=== PATIENT | male | born 2005 | race Caucasian/White ===

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

== ENCOUNTER 2024-10-13 13:49 | Emergency (ER) | payer MEDICAID, SELFPAY ==
[2024-10-13] VITALS (8 sets, daily range): BP systolic 89–110; BP diastolic 53–67; PULSE 84–103; RESP 19–25; TEMP 36.6–37.7; O2SAT 93–100; BMI 25.4
--- NOTE | 2024-10-13 14:08 | EKG12_ITS ---
Test Reason : Blood Pressure : */* mmHG Vent. Rate : 102 BPM Atrial Rate : 102 BPM P-R Int : 128 ms QRS Dur : 76 ms QT Int : 304 ms P-R-T Axes : 13 -10 23 degrees QTcB Int : 396 ms Sinus tachycardia Minimal voltage criteria for LVH, may be normal variant ( R in aVL ) Nonspecific T wave abnormality Abnormal ECG Confirmed by MOY CROW, CHALO ([id number]), photograph editor KRISSY ALLEN ([id number]) on 10/16/2024 7:18:57 AM Referred By: John Rosa Confirmed By: CHALO WINTER MD
--- NOTE | 2024-10-13 14:09 | EX.ED.DYSGE1 ---
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 Patient presents via EMS with reported shortness of breath. Family members were sick as well. Reported increased difficulty breathing/shortness of breath. Grandmother who is also his guardian states that she has been sick over the last few days with decreased appetite. She attempted to do his tube feedings, but he did not tolerated. Yesterday he had fever as well today and began coughing. She states that he coughed up pink phlegm. She was unsure as to the cause of this, thinking that maybe he was suction too hard by his home health nurse. He last received an antipyretic about an hour and a half ago. They state that he was also having difficulty breathing this morning but they did not administer albuterol this morning because he was already tachycardic. No recent admissions to the hospital. [facility] Medical History History of urinary reflux History of urinary reflux Blind right eye Dysphagia Asthma Cleft soft palate VSD (ventricular septal defect) G tube feedings Seizure disorder Trisomy 18 syndrome Home Medications ?Medication ?Instructions ?Recorded ?Last Taken ?Type albuterol sulfate 2.5 mg/3 mL 2.5 mg inhalation Q4H PRN PRN 08/23/16 02/21/18 History (0.083 %) solution for nebulization Shortness Of Breath levetiracetam 100 mg/mL oral 900 mg G-tube TID 08/23/16 02/21/18 History solution melatonin 1 mg tablet 10 mg G-tube QHS 08/23/16 1 Day Ago History ~02/20/18 metoprolol tartrate 25 mg tablet 25 mg G-tube BID 08/23/16 02/21/18 History L.acidoph,paracasei,B.animalis 10 1 ea GT BID 12/21/19 Unknown History billion cell capsule immune glob,gamma (IgG) 10 1 dose QWEEK 12/21/19 Unknown History %-gly-IgA over 50 mcg/mL injection solution polymyxin B sulfate 10,000 10 ml OP BID PRN PRN DRYNESS 12/21/19 Unknown History unit-trimethoprim 1 mg/mL eye drops (Polytrim) cetirizine 10 mg tablet (Zyrtec) 10 mg G-tube DAILY 11/29/20 Unknown History calcium carbonate 500 mg/5 mL (as 625 mg feeding tube DAILY 02/06/21 Unknown History calcium carb 1,250 mg/5 mL) oral suspension cholecalciferol (vitamin D3) 10 10 mcg PO DAILY 02/06/21 Unknown History mcg/mL (400 unit/mL) oral drops diazepam 10 mg/spray (0.1 mL) 10 mg intranasal PRN PRN Seizures 02/10/22 Unknown History nasal spray (Valtoco) furosemide 10 mg/mL injection 10 mg IM DAILY 08/24/22 Unknown History solution amoxicillin 400 mg/5 mL oral 875 mg (10.9375 mL) PO BID 10 days 03/08/23 Unknown Rx suspension #218.75 mL Allergy/AdvReac Type Severity Reaction Status Date / Time immune globulin,gamma (IgG) Allergy Other Verified 03/08/23 19:04 human (From Treater) Surgical History History of tonsillectomy and adenoidectomy History of Zo fundoplication Social History Smoking Status: Never smoker alcohol intake: never substance use type: does not use ROS ROS ED ROS Narrative Unable to obtain from patient secondary to nonverbal. Per grandmother/guardian, positive fever, not tolerating tube feeds. Developed cough with pink sputum production today. Increased difficulty breathing today as well. EXAM Physical Exam Narrative Exam Narrative: Afebrile, but temperature slightly elevated 99.9 ?F. Vital signs noted. Cardiovascular examination reveals a regular rate and rhythm with holosystolic murmur. Positive rhonchorous lungs bilaterally. Abdomen soft with noted PEG tube. Positive bowel sounds. No guarding or rebound. Const Vital Signs: 10/13/24 13:52 10/13/24 13:57 10/13/24 14:30 Temperature 99.9 F H 99.9 F H 99.9 F H Temperature Source Axillary Axillary Axillary Pulse Rate 84 88 99 Respiratory Rate 19 H 23 H 25 H Respiratory Pattern Blood Pressure 89/67 L 89/67 L 110/65 Blood Pressure Mean 74 74 78 Pulse Ox 100 100 98 Oxygen Delivery Method Non-Rebreather Non-Rebreather Trach Collar Oxygen Flow Rate (L/min) 6 6 4 10/13/24 14:31 10/13/24 14:39 10/13/24 15:17 Temperature Temperature Source Pulse Rate 99 Respiratory Rate 22 H Respiratory Pattern Normal Tachypnea Blood Pressure Blood Pressure Mean Pulse Ox 100 Oxygen Delivery Method Trach Collar Oxygen Flow Rate (L/min) 4 10/13/24 16:00 10/13/24 17:00 10/13/24 18:00 Temperature 98.1 F 98.1 F 98 F Temperature Source Axillary Axillary Axillary Pulse Rate 97 93 103 H Respiratory Rate 21 H 20 H 20 H Respiratory Pattern Blood Pressure 103/62 94/53 L 108/62 Blood Pressure Mean 74 66 77 Pulse Ox 95 97 95 Oxygen Delivery Method Nasal Cannula Nasal Cannula Room Air Oxygen Flow Rate (L/min) 4 4 10/13/24 18:00 Temperature 98.1 F Temperature Source Axillary Pulse Rate 96 Respiratory Rate 19 H Respiratory Pattern Blood Pressure 107/63 Blood Pressure Mean 78 Pulse Ox 93 Oxygen Delivery Method Room Air Oxygen Flow Rate (L/min) MDM MDM MDM Narrative Medical decision making narrative: Differential diagnosis includes but not limited to pneumonia versus pneumothorax versus upper respiratory infection/viral syndrome including COVID, influenza, and RSV. Additionally, CHF is in the differential diagnosis as well. I have low suspicion for pneumothorax based on the patient's physical examination. He is mildly hypotensive initially at 89 systolic, but increased to 99. I reviewed his prior problem list he has seizure disorder with previous aspiration, and a ventricular septal defect. He also has renal agenesis and Mo syndrome. EKG was obtained and interpreted by myself independently as sinus tachycardia 102 bpm without ectopy or acute ST changes. No STEMI. I reviewed his laboratory work after it was obtained, and he has normal white count of 8.6 with hemoglobin 13.9, hematocrit 41.5, platelet count slightly low at 110 2 feels probably chronic for him. BMP grossly unremarkable except for glucose of 109. Lactic acid is elevated at 2.9, but when compared to previous laboratories, he has chronic elevation of his lactic acid. Chest x-ray in 1 view interpreted by myself independently shows no evidence of a pneumonia or pneumothorax. There is air in the bowel causing mild distention. I reviewed the radiology report and it comments on possible free air under the diaphragm. I did read the radiology report to the transfer physician who wanted a decubitus film as well but still wants to transfer via [facility] mobile intensive care. Patient has been bolused IV fluids for the lactic acidosis. Additionally, his respiratory swab was positive for influenza A. Initially I did order Tamiflu, but given the possibility of free air under the right hemidiaphragm, this was held until decubitus film was obtained. Additionally, the transfer physician did request that he be given his antiseizure medications as well. He was administered Keppra 1000 mg intravenously as he usually takes 900 through his G-tube according to his medication list. On my independent interpretation of his decubitus abdominal x-ray, there is no evidence of free air. I did review the radiology report which confirms my independent interpretation of no noted free air. I had discussed the patient with his grandmother who states that she is unable to take him home and wants him transferred. She herself is sick and unable to care for him. I do feel that this is possible given his chronic conditions and his being influenza positive. He is currently not tachycardic and his blood pressure is stable. Disposition is transferred in stable condition. History & Record Review Discussion w/independent historian: Family Additional record(s) reviewed:: Prior labs Lab Data Attestation: I reviewed the patient's lab results. Labs: Laboratory Results - last 24 hr 10/13/24 10/13/24 10/13/24 15:05 15:05 15:57 WBC Cancelled 8.6 Corrected WBC Cancelled RBC Cancelled 4.52 L Hgb Cancelled 13.9 Hct Cancelled 41.5 MCV Cancelled 91.8 MCH Cancelled 30.8 MCHC Cancelled 33.5 RDW Std Deviation Cancelled 43.8 RDW Coeff of Radha Cancelled 13.2 Plt Count Cancelled 110 L MPV Cancelled 11.6 Immature Gran % (Auto) Cancelled 0.500 Neut % (Auto) Cancelled 79.9 H Lymph % (Auto) Cancelled 8.0 L [place] % (Auto) Cancelled 11.1 H Eos % (Auto) Cancelled 0.3 Baso % (Auto) Cancelled 0.2 Absolute Neuts (auto) Cancelled 6.9 Absolute Lymphs (auto) Cancelled 0.69 L Total Counted Cancelled Neutrophils % (Manual) Cancelled Band Neutrophils % Cancelled Lymphocytes % (Manual) Cancelled Monocytes % (Manual) Cancelled Eosinophils % (Manual) Cancelled Basophils % (Manual) Cancelled Metamyelocytes % Cancelled Myelocytes % Cancelled Promyelocytes % Cancelled Blast Cells % Cancelled Plasma Cell % (Manual) Cancelled Other Cells % Cancelled Nucleated RBC % Cancelled 0 Nucleated RBCs/100 WBC Cancelled Differential Comment Cancelled Diff Path Review Cancelled Hypersegmented Neuts Cancelled Atypical Lymphocytes Cancelled Reactive Lymphocytes Cancelled Smudge Cells Cancelled Toxic Granulation Cancelled Toxic Vacuolation Cancelled Dohle Bodies Cancelled Candy Rods Cancelled Platelet Estimate Cancelled Plt Morphology Comment Cancelled RBC Morphology Cancelled Cancelled Polychromasia Cancelled Hypochromasia Cancelled Basophilic Stippling Cancelled Anisocytosis Cancelled Microcytosis Cancelled Macrocytosis Cancelled Spherocytes Cancelled Sickle Cells Cancelled Target Cells Cancelled Tear Drop Cells Cancelled Ovalocytes Cancelled Stomatocytes Cancelled Simons-[place]ijer[place] Bodies Cancelled Brayden Cells Cancelled Bite Cells Cancelled Crenated Cell Cancelled Acanthocytes (Spur) Cancelled Rouleaux Cancelled Schistocytes Cancelled Sodium 138 Potassium 4.5 Chloride 104 Carbon Dioxide 27.0 Anion Gap 6 BUN 18 Creatinine 1.04 Estim Creat Clear Calc 68.40 Est GFR (MDRD) Af Amer 117 Est GFR (MDRD) Non-Af 97 BUN/Creatinine Ratio 17.3 Glucose 109 H Lactic Acid 2.9 H* Calcium 9.5 Radiography Diagnostic Testing: Clinical Impression(s) from Imaging Studies Chest X-Ray 10/13/24 14:45 IMPRESSION: Free air beneath the right hemidiaphragm. Diminished lung volumes. Elevation of the right hemidiaphragm. Severe scoliosis of the vertebral column. Tracheostomy tube in good position. Reading Location: [facility] Abdomen X-Ray 10/13/24 17:35 IMPRESSION: No definite signs of free air on the upright projection of the abdomen. 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, Discussing w/Consultants and Arranging Admission or Transfer Discharge Plan Triage Chief Complaint: General Illness ED Provider: John Rosa Dx/Rx/DC Orders Clinical Impression: Mo' syndrome, Influenza A, Lactic acidosis Prescriptions: No Action levetiracetam 500 MG/5 ML solution 900 mg G-tube TID melatonin 1 MG tablet 10 mg G-tube QHS metoprolol tartrate 25 MG tablet 25 mg G-tube BID albuterol sulfate 2.5 MG/3 ML solution for nebulization 2.5 mg inhalation Q4H PRN PRN (Reason: Shortness Of Breath) polymyxin B sulf-trimethoprim [Polytrim] 10 ML drops 10 ml OP BID PRN PRN (Reason: DRYNESS) L.acidoph,paracasei,B.animalis 1 EACH capsule 1 ea GT BID immun glob G(IgG)-gly-IgA ov50 10% solution 1 dose QWEEK cetirizine [Zyrtec] 10 MG tablet 10 mg GT DAILY calcium carbonate 500 mg/5 mL (1,250 mg/5 mL) Suspension 625 mg feeding tube DAILY cholecalciferol (vitamin D3) 10 mcg/mL (400 unit/mL) Drops 10 mcg PO DAILY Valtoco 10 mg/spray (0.1 mL) [place],Non-Aerosol 10 mg INTRANASAL PRN PRN (Reason: Seizures) furosemide [Lasix] 10 mg/mL Solution 10 mg IM DAILY amoxicillin 400 mg/5 mL suspension for reconstitution 875 mg PO BID 10 Days Qty: 218.75 0RF Primary Care Provider: Damian Corley Referrals: Damian Corley MD [Primary Care Provider] - Print Language: Tuvaluan Disposition Disposition: Acute Care Hospital Discharge Location: [facility] Discharge Date/Time: 10/13/24 19:14
[2024-10-13] MEDS: Albuterol 2.5 MG/3 ML VIAL.NEB. INHALATION (14:31)
--- NOTE | 2024-10-13 14:45 | RAD_ITS ---
PROCEDURE: CHEST 1 VIEW (PORTABLE) REASON FOR EXAM: Increased shortness of breath. Patient has a tracheostomy. Family has influenza. TECHNIQUE: Single frontal image including the chest and upper abdomen. COMPARISON: 03/08/2023 AP upright portable chest. FINDINGS: Diminished lung volumes. Elevation of the right hemidiaphragm. Free air beneath the right hemidiaphragm. No pleural effusions, thickening, or pneumothorax. Heart and mediastinum are stable. Great vessels unremarkable. No hilar masses. Severe scoliosis of the vertebral column. Soft tissues unremarkable. Cardiac monitoring leads overlie the chest wall. Tip of the tracheostomy tube in good position above the ida. RAD/Chest 1 View (Portable) IMPRESSION: Free air beneath the right hemidiaphragm. Diminished lung volumes. Elevation of the right hemidiaphragm. Severe scoliosis of the vertebral column. Tracheostomy tube in good position. Reading Location: [facility]
[2024-10-13 15:53] LABS: Anion Gap 6 (5-15); BUN 18 mg/dL (7-18); BUN/Creat Ratio 17.3 RATIO (10-20); Calcium,Total 9.5 mg/dL (8.5-10.1); Chloride 104 mmol/L (98-107); Creatinine, Serum 1.04 mg/dL (0.70-1.30); EST Glomerular Filtration Rate 97 mL/min (>60); Est Glom Filt Rate - Afr Amer 117 mL/min (>60); Glucose 109 mg/dL (74-106); Potassium 4.5 mmol/L (3.5-5.1); Sodium Level 138 mmol/L (136-145)
[2024-10-13 15:55] LABS: Lactic Acid 2.9 mmol/L (0.4-1.9)
[2024-10-13 16:24] LABS: Absolute Lymphocyte Count 0.69 X10^3/uL (0.83-4.51); Absolute Neutrophil Count 6.9 X10^3/uL (2.0-7.7); Basophil# 0.02 X10^3/uL; Basophil% 0.2 % (0-1); Eosinophil# 0.03 X10^3/uL; Eosinophils% 0.3 % (0-5); Hematocrit 41.5 % (40-54); Hemoglobin 13.9 g/dL (13.0-16.5); Lymphocyte # 0.69 X10^3/ul (0.83-4.51); Mean Corp Hgb Conc 33.5 g/dL (32-36); Mean Corpuscular Hgb 30.8 pg (27.0-32.0); Mean Corpuscular Volume 91.8 fL (80-94); Mean Platelet Vol. 11.6 fl (6.2-12.0); Monocyte# 0.96 X10^3/uL; Monocyte% 11.1 % (0-10); NRBC Flagged by Analyzer 0 % (0-5); Neutrophil % 79.9 % (47-70); Platelet Count 110 K/mm3 (150-450); RBC Distribution Width CV 13.2 % (11.6-14.6); RBC Distribution Width SD 43.8 fl (35.1-43.9); Red Blood Count 4.52 M/mm3 (4.6-6.2); White Blood Count 8.6 K/mm3 (4.4-11.0)
[2024-10-13] MEDS: 0.9% Normal Saline (500mL Bag) 500 ML 999 ML IV (16:30)
--- NOTE | 2024-10-13 17:20 | ED.RN ---
CALLED [facility] @ 1907 FOR A TRANSFER WAITING FOR DR CUEVAS BACK
--- NOTE | 2024-10-13 17:35 | RAD_ITS ---
PROCEDURE: AP SUPINE AND UPRIGHT ABDOMEN PORTABLE REASON FOR EXAM: EVALUATE FOR FREE AIR. TECHNIQUE: TWO-VIEW ABDOMEN. COMPARISON: AP UPRIGHT PORTABLE CHEST DATED 10/13/2024. FINDINGS: Bowel-gas pattern unremarkable. No signs for obstruction. The area of suspected free air beneath the right hemidiaphragm on the earlier study is not identified on the current examination. Large fecal bolus in the rectum. Subsegmental atelectasis in the right lower lobe. Bones and soft tissues are unchanged. RAD/Abd Decub and/or Erect(Portabl IMPRESSION: No definite signs of free air on the upright projection of the abdomen. Reading Location: [facility]
--- NOTE | 2024-10-13 17:40 | ED.RN ---
ACCEPTED AT [facility] @ [phone]
[2024-10-13 19:13] LABS: Reflex Lactate? Y
== END 2024-10-13 19:14 | disposition short-term general hospital (02) ==
PROVIDERS: Emergency Provider Emergency Medicine; PCP Pediatrics; Referring Provider Emergency Medicine; Visit Provider Emergency Medicine
DX: J10.1 Influenza due to other identified influenza virus with other respiratory manifestations (principal); Z93.0 Tracheostomy status; E87.20 Acidosis, unspecified; Q91.3 Trisomy 18, unspecified
CPT/HCPCS: 71045; 74019; 80048; 83605; 85025; 87040; 87631; 93005; 94640; 96360; 99285; A4216

== ENCOUNTER 2025-03-29 10:30 | Outpatient (RCR) | payer MEDICAID, SELFPAY ==
--- NOTE | 2025-03-02 12:56 | HP.OTEVAL ---
Patient's Visit Information Visit Information Visit Information: ZHAO JORGE is a 19 year old M, referred to Occupational Therapy by CHILO ROLLE, with a diagnosis of Trisomy 18, extended hospital stay due to flu dx. Date of Evaluation: 03/02/25 Occupational Therapist: Sendy Bustos Subjective Subjective: This 19 year old man was seen for OT eval today due to concerns with decreased endurance, strength, balance, following extended hospital stay. In October 13, 2024, Zhao was admitted to [facility] with the flu. He spent extended time in the ICU (~60 days) with 3-5 days on ECMO, he suffered renal failure and spent time on continuous dialysis. Total, he spent 111 days at [facility] and was dc'd home 01/31/25. He received therapy at [facility]. He has not been ambulating since coming home from the hospital. He can stand-pivot to EOB but otherwise crawls or uses wc. Prior to hospitalization, he would ambulate short distances. Grandma and nurse present during eval and provided information as Zhao is nonverbal. They would like Zhao to regain his strength and participate in simple daily tasks such as folding towels, putting clothes on hangers, etc. They want him to be able to do as much as he can in his daily life. They are interested in adaptive strategies/tools to inc indep. Zhao loves hitting balloon back and forth and throwing balls. He will push buttons to control remote control robot. Zhao lives at home with grandjc who is his guardian. Aunt and two cousins also currently staying with them. In-home nurse M-F first shift (40hrs/week). Zhao prefers to sit in bed and play his tablet all day. He enjoys [employer] and [employer]. He is currently refusing to walk. He will crawl out of bed and into the living room when motivated to do so. He is indep with use of his table. Zhao has a communication device but does not use it effectively. He has limited interest. Has a few verbal phrases he will use such as "no" "knock knock" "peek a wang" , "sami." Not a lot of functional language. Zhao has a trach and is NPO. He is fed through g-tube. DX Trisomy 18 blind R eye dysphagia g-tube feeds seizure disorder VSD (ventricular septal defect) Zo funduplication ADLs Comments: Incontinent toileting - no sphincter control. Comments: NPO. incontinent Dep oral hygiene with suction UB dressing: he can get his arms through once it's over his head LB: dep Bathing: tub/shower. Nurse lifts him in and out of bathtub 2 days/week. Sponges daily. Zhao enjoys bathing and can sit up in the tub. Dep bathing. Objective Objective/Observation: Zhao followed simple commands with demonstration for ROM testing. He reached for items demonstrating functional ROM. Per grandma and nurse, he understands more than he lets on but is often resistant to following commands for adult directed tasks. Prefers to do things on his own terms. ROM ROM Comments: BUE WFL except R wrist flexed to ~ 90 deg. inc tone. baseline. Can make full fist with L hand but grasp is weak. Can throw a ball. Per nurse, he will catch a beach ball with two hands but overall bilateral hand use is limited. Would not use two hands to pull apart pop tube. Used R hand to pull apart when therapist held other side. Strength Strength Comments: Lifted BUE with 1/2" wrist weight. Unable to lift arms with 1" weight. Lifted 2# and 3# dumbbell off table with inc effort. Per grandma, prior to illness, Zhao enjoyed rolling prone and supine over beach ball and had the core strength to pull himself back up from supine position. Transfers Transfers: mod A STS with assist from nurse during eval. Zhao was resistant to standing. He did self propel wc through hallway using feet. Quick DASH-Disab of Arm,Shoulder& Hand Quick DASH Score: [phone] Goals Goal:: Zhao will demo increased UB strength by lifting BUE x 10 reps each with 3# wrist weight during functional/leisure activity to increase indep with daily tasks and transfers. Zhao will demo inc bilateral hand use to complete functional two-handed tasks such as folding towels, assisting with hanging up/putting away clothes, etc to increase indep with ADLs. CG will demo understanding of home PRE program to inc strength for transfers. Rehabilitation General Assessment: Zhao is demonstrating decreased strength, balance, endurance, fine motor skills following an extended hospital stay at [facility]. Skilled OT services are recommended 1-2x/week to address needs and provide training/adaptive strategies to maximize indep. Rehabilitation Potential: Questionable Anticipated Interventions Anticipated Interventions: A/AAROM/PROM, Strengthening, Joint Protection/Energy Conservation, Dynamic Sitting Balance, Fine Motor Coord/Quan, Neuro Reeducation, Sensory Stimulation, ADL Training, Education re assistive Equipment, Caregiver Training and Home Program Visit Plan Frequency: 2x /Week Duration: 6 Weeks TEXT: Thank you for the opportunity to evaluate your patient. For Medicare and Medicare HMO plans, please review the plan of care and approve it. It will need to be FAXED BACK to us at [phone] for Medicare purposes. Please let me know if there are questions or concerns regarding this plan of care. Physician Signature: Date:
--- NOTE | 2025-03-13 22:22 | HP.PTEVAL_ITS ---
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 Date of Evaluation: 03/02/25 Physical Therapist: Lisa Calloway PT, Cert MDT Visit Plan Frequency: 2x /Week Duration: 4-6 Weeks Plan: PT 2X'S A WK X 4-6 WKS: 1. MANUAL THERAPY FOR JIM LE CALF STRETCHING AND CAREGIVER INSTRUCTION FOR HOME. 2. JIM LE/CORE STRENGTHENING EX'S THAT ARE FUN FOR PATIENT TO IMPROVE GAIT, BALANCE AND TRANSFER ABILITIES AND THEN INSTRUCT CAREGIVERS FOR HOME (START WITH FLOOR TO MAT TRANSFERS AND STANDING BALANCE WITH FUN DISTRACTIONS PATIENT ABLE TO DEMO FLOOR TO WC TRANSFER TODAY WITH MIN ASSIST TODAY). 3. PROGRESS TO WALKING ACTIVITIES IF ABLE WITH DECREASING SUPPORTS SAFETY ALLOWS. Subjective Subjective: This 19 year old man was seen for PT eval today due to concerns with decreased endurance, strength, and balance, following extended hospital stay. In October 13, 2024, Zhao was admitted to [facility] with the flu. He spent extended time in the ICU (~60 days) with 3-5 days on ECMO, he suffered renal failure and spent time on continuous dialysis. Total, he spent 111 days at [facility] and was dc'd home 01/31/25. He received therapy at [facility]. He has not been ambulating since coming home from the hospital. He can stand- pivot to EOB but otherwise crawls or uses wc. He transfers in and out of the bed Indep'ly but they have not seen him transfer in/out of the wc Indep'ly. Prior to hospitalization, he would ambulate short distances. Per mavis, prior to illness, Zhao enjoyed rolling prone and supine over beach ball and had the core strength to pull himself back up from supine position. Mavis Bethea and nurse MARCELLA Butterfield present during eval and provided information as Zhao is nonverbal. They would like Zhao to regain his strength and participate in simple daily tasks such as walking and transfers. They want him to be able to do as much as he can in his daily life. Zhao loves hitting balloons back and forth and throwing balls. He knows his numbers, ABC's and does puzzles. Zhao lives at home with mavis who is his guardian. An Aunt and two cousins are also currently staying with them. Assistance of In-home nurse Nelson first shift (40hrs/week) and grandma mainly does the rest of caregiving. Zhao prefers to sit in bed and play his tablet all day. He also enjoys YouTube, music and watching TV. He is currently refusing to walk. Mavis is concerned he has developed some foot drop because when he stands for transfers he is on his toes. He will crawl out of bed and into the living room when motivated to do so. Nurse Greer states he did take about 5 steps on Friday to the tub with the aides but he was on his tip toes. Bathing: tub/shower. Nurse lifts him in and out of bathtub 2 days/week. Sponges daily. Zhao enjoys bathing and can sit up in the tub. Dep bathing. Pain - Nurse and Grandma indicate Zhao has a high pain tolerance and has not been indicating he is having pain. Zhao's main form of communication is pointing. Per grandma and nurse, he understands more than he lets on but is often resistant to following commands for adult directed tasks. Prefers to do things on his own terms. Zhao has a trach and is NPO. He is fed through g-tube. PMH: Trisomy 18 blind R eye dysphagia g-tube feeds seizure disorder VSD (ventricular septal defect) Zo fundoplication Objective Objective: This patient presents to PT today with his Grandma and Nurse. He is wheeled back to the PT treatment room by his Nurse with his feet partially d ragging. When cued he does not pick his feet up and CG's are aware. Patient is able to propel the wc for about 5 to 10 feet with his feet but not long distances. Transfer sit to stand and stand to sit with Mod assist from nurse and resists not wanting to stand. Floor Transfer: Grandma assisted patient to floor from and Zhao again resisted not wanting to get out of wc. Once on the floor it took him awhile to figure out how to shift his weight to get onto his knees and use his UE's on the wc and pull on the Nurses hand to help himself back into the wc but he pulled himself to stand and for just a quick second stood foot flat Jim with min to mod assist from the nurse and did a stand pivot transfer into the wc demonstrating functional ROM in his LE's to do so. NWB calves are very tight at approx. minus 10 deg and appear to be spastic. Fair Minus sitting balance at trunk on the Floor. LE AROM appear WFL with Zhao following simple commands to kick out LE's when asked. He does not stand without support today. knee PROM and hip PROM WFL, does not listen to instruction for strength testing. seems to feel light touch in feet due to pulling back when I squeeze them gently B. Follows simple commands intermittently today. Balance/Special Test Scores Lower Extremity Functional Score: 12 Goals Goal 1:: Zhao will demo increased LE strength by lifting BLE's x 10 reps each with 3# ankle weights during functional/leisure activity to increase indep with daily tasks and transfers. Goal Time Frame: 6-8 Weeks Goal 2:: Zhao will demo increased bilateral LE use to complete functional transfers to increase indep with ADLs. Goal Time Frame: 6-8 Weeks Goal 3:: Zhao will demo gait with AD with min assist +1 x 20 feet to work toward indep. Goal Time Frame: 6-8 Weeks Goal 4:: CG will demo understanding of home PRE program to increase LE strength and ROM for gait and transfers. Goal Time Frame: 6-8 Weeks Rehabilitation Potential Physical Therapy Diagnosis: Zhao is demonstrating decreased strength, balance, endurance, and gait ability following an extended hospital stay at [facility]. Skilled PT services are recommended 1-2x/week to address needs and provide ROM, gait, balance and strength training to maximize indep. Rehabilitation Potential: Questionable Anticipated Interventions Patient/Client Instruction: Educate patient on: Condition For the Purpose of:: To facilitate caregiver knowledge Therapeutic Exercise to Include: Strength training, Endurance training, Balance training, Flexibilty training, Gait and locomotor training, Neuromotor development, Passive ROM and Active ROM For the Purpose of:: To improve muscle performance and motor function, To improve ability to perform ADL's, To improve performance and independence with ADL's, To improve ability of physical actions for home/community/work/leisure, To improve gait and locomotor functions, To decrease soft tissue restriction, To increase flexibility/ROM, To improve balance and To improve tolerance to ADL's Text: Thank you for the opportunity to evaluate your patient. For Medicare and Medicare HMO plans, please review the plan of care and approve it. It will need to be FAXED BACK to us at [phone] for Medicare purposes. For Medicare only, by signing this I certify the plan of care. Please let me know if there are questions or concerns regarding this plan of care. Physician Signature: Date:__
--- NOTE | 2025-05-31 15:59 | HP.OT.NRP ---
Patient Information Patient Information: ZHAO JORGE was seen in my office for initial evaluation on 03/02/25. The following Plan of Care was established for this patient: POC Established Initial Frequency: 2x /Week Initial Duration: 6 Weeks Plan: cont POC Anticipated Interventions Anticipated Interventions: A/AAROM/PROM, Strengthening, Joint Protection/Energy Conservation, Dynamic Sitting Balance, Fine Motor Coord/Quan, Neuro Reeducation, Sensory Stimulation, ADL Training, Education re assistive Equipment, Caregiver Training and Home Program Last Seen Last Seen: This patient was last seen in our office 03/29/25. Pertinent comments regarding their Occupational therapy will appear below: no further apts have been scheduled and due to time lapse in services pt is d/c at this time. At this point I will be discontinuing this patient from occupational therapy. I would be happy to see this patient again in the future if found appropriate by the physician. Thank you! Jasmina Amin, OTR/L, CHT
== END 2025-03-29 19:00 | disposition home or self-care (01) ==
LOC: OT 10:30
PROVIDERS: PCP Student in an Organized Health Care Education/Training Program
DX: Q91.1 Trisomy 18, mosaicism (mitotic nondisjunction) (principal); Q67.5 Congenital deformity of spine
CPT/HCPCS: 97110; 97140; 97162; 97166; 97530